=== PATIENT | male | born 1960 ===

== ENCOUNTER 2019-10-18 05:25 | Day surgery (SDC) | payer OTHER ==
[~2019-10-18 05:25] MED LIST: ASPIR 8181 MG PO; DESCOVY 200-251 EACH PO; LIPITOR40 MG PO; PLAVIX75 MG PO; PRESCOBIX PO; TOPROL XL25 M1 PO; [UNRECOGNIZED DRUG - OTHER] PO
[2019-10-18] MEDS ORDERED: KETO10TA2 PO (08:39)
[2019-10-18] MEDS ORDERED: PERCOCET 5-3251 EACH PO (08:39)
== END 2019-10-18 14:10 | disposition home or self-care (01) ==
LOC: CIR.AMB 05:25 → ADM 10:15 → CIR.AMB 13:00
DX: A63.0 Anogenital (venereal) warts (principal)